=== PATIENT | female | born 1980 | race Caucasian/White ===

== ENCOUNTER 2017-11-12 11:00 | Outpatient (CLI) | payer MEDICAID ==
[2017-11-12 11:41] LABS: ADD UMIC YES; UR ASCORBIC ACID NEGATIVE (NEGATIVE); UR BACTERIA FEW /HPF (NONE SEEN); UR BILIRUBIN (Dip) NEGATIVE (NEGATIVE); UR BLOOD (Dip) NEGATIVE (NEGATIVE); UR CLARITY CLEAR (CLEAR); UR COLOR YELLOW (YELLOW); UR GLUCOSE (Dip) NEGATIVE (NEGATIVE); UR KETONES (Dip) TRACE mg/dL (NEGATIVE); UR LEUKOCYTE ESTERASE (Dip) 1+ Leu/ul (NEGATIVE); UR MUCUS FEW /HPF (NONE SEEN); UR NITRITE (Dip) NEGATIVE (NEGATIVE); UR RBC 1 /HPF (0-5); UR SPECIFIC GRAVITY (Dip) 1.024 (1.003-1.030); UR SQUAMOUS EPITHELIAL CELL FEW /HPF (FEW); UR TOTAL PROTEIN (Dip) NEGATIVE (NEGATIVE); UR UROBILINOGEN (Dip) 1+ mg/dL (NEGATIVE); UR WBC 3 /HPF (0-5)
== END 2017-11-12 12:00 | disposition home or self-care (01) ==
LOC: OBT 11:00 → L-D 11:01 → OBT 12:00
DX: O23.43 Unspecified infection of urinary tract in pregnancy, third trimester (principal); O09.523 Supervision of elderly multigravida, third trimester; Z3A.37 37 weeks gestation of pregnancy
CPT/HCPCS: 76818; 81001

== ENCOUNTER 2017-11-23 04:25 | Inpatient (IN) | payer MEDICAID ==
[2017-11-23] MEDS ORDERED: LACTATED RINGER'S 1,000 ML IV (04:56)
[2017-11-23] MEDS ORDERED: OXYTOCIN 30 UNITS/LR 500 ML IV ×2 (05:00→11:00)
[2017-11-23] MEDS ORDERED: METHYLERGONOVINE 0.2 MG INJ IM ×2 (05:00→11:00)
[2017-11-23] MEDS ORDERED: IBUPROFEN 600 MG TAB PO (05:00)
[2017-11-23] MEDS ORDERED: MISOPROSTOL 200 MCG TAB PR ×2 (05:00→11:00)
[2017-11-23] MEDS ORDERED: OXYCODONE/ASPIRIN (4.88/325) TAB PO (05:00)
[2017-11-23] MEDS ORDERED: CARBOPROST 250 MCG INJ IM ×2 (05:00→11:00)
[2017-11-23] MEDS ORDERED: BUTORPHANOL 2 MG INJ IV (05:00)
[2017-11-23] MEDS: LACTATED RINGER'S 1,000 ML IV (05:16)
[2017-11-23 06:25] LABS: ADD MAN DIFF? NO
[2017-11-23 06:43] LABS: WHITE BLOOD COUNT 6.5 10^3/ul (4.8-10.8)
[2017-11-23 06:43] LABS: BASOPHILS % 0.3 % (0.0-2.0); EOSINOPHILS % 0.3 % (0.0-7.0); HEMATOCRIT 34.4 % (37.0-47.0); HEMOGLOBIN 11.6 g/dl (12.0-16.0); LYMPHOCYTES # 1.6 10^3/ul (0.8-2.9); LYMPHOCYTES % 23.7 % (15.0-51.0); MEAN CORPUSCULAR HEMOGLOBIN 31.3 pg (29.0-33.0); MEAN CORPUSCULAR HGB CONC 33.7 g/dl (32.0-37.0); MEAN CORPUSCULAR VOLUME 92.7 fl (82.0-101.0); MONOCYTE # 0.5 10^3/ul (0.3-0.9); MONOCYTES % 7.5 % (0.0-11.0); NEUTROPHIL # 4.4 10^3/ul (1.6-7.5); NEUTROPHILS % 67.6 % (39.0-77.0); PLATELET COUNT 200 10^3/UL (140-415); RED BLOOD COUNT 3.71 10^6/ul (4.20-5.40); RED CELL DISTRIBUTION WIDTH 13.3 % (11.5-14.5)
[2017-11-23 06:55] LABS: INR 0.85; PARTIAL THROMBOPLASTIN TIME 25.2 Sec (25.0-35.0); PROTIME 11.7 Sec (11.9-14.9); PT RATIO 0.9
[2017-11-23 07:37] LABS: HEPATITIS B SURFACE ANTIGEN NEGATIVE (NEGATIVE)
[2017-11-23] MEDS ORDERED: morphine 10 MG INJ (08:38)
[2017-11-23] MEDS: morphine 10 MG INJ IV (08:43)
[2017-11-23] MEDS: OXYTOCIN 30 UNITS/LR 500 ML IV ×2 (08:44→08:58)
[2017-11-23] MEDS: LIDOCAINE 1% (MPF) 30 ML INJ INJ ×2 (08:47→08:48)
[2017-11-23] MEDS ORDERED: LACTATED RINGER'S 1,000 ML IV* (10:37)
[2017-11-23] MEDS ORDERED: DIBUCAINE 1% 30 GM OINT TOP (11:00)
[2017-11-23] MEDS ORDERED: HYDROCODONE/APAP (5/325) TAB PO (11:00)
[2017-11-23] MEDS ORDERED: ACETAMINOPHEN 325 MG TAB PO (11:00)
[2017-11-23] MEDS ORDERED: BENZOCAINE 20% 56 ML SPRAY TOP (11:00)
[2017-11-23] MEDS: IBUPROFEN 600 MG TAB PO ×3 (12:00→23:47)
[2017-11-23] MEDS ORDERED: ONDANSETRON 4 MG INJ IV (13:00)
[2017-11-23] MEDS: LANOLIN 7 GM TUBE TOP (15:20)
[2017-11-23] MEDS: WITCH HAZEL/GLYCERIN PAD PR (15:21)
[2017-11-23] MEDS: ONDANSETRON 4 MG TAB PO (15:32)
[2017-11-23 18:37] LABS: RAPID PLASMA REAGIN NONREACTIVE (NR)
[2017-11-23] MEDS: SENNA/DOCUSATE NA (8.6MG/50MG) TAB PO (23:47)
[2017-11-24] MEDS: IBUPROFEN 600 MG TAB PO ×3 (06:00→18:00)
[2017-11-24 08:57] LABS: ADD MAN DIFF? NO
[2017-11-24 09:07] LABS: WHITE BLOOD COUNT 9.5 10^3/ul (4.8-10.8)
[2017-11-24 09:07] LABS: BASOPHILS % 0.2 % (0.0-2.0); EOSINOPHILS % 0.3 % (0.0-7.0); HEMATOCRIT 33.3 % (37.0-47.0); HEMOGLOBIN 11.3 g/dl (12.0-16.0); LYMPHOCYTES # 1.6 10^3/ul (0.8-2.9); LYMPHOCYTES % 16.5 % (15.0-51.0); MEAN CORPUSCULAR HEMOGLOBIN 31.7 pg (29.0-33.0); MEAN CORPUSCULAR HGB CONC 33.9 g/dl (32.0-37.0); MEAN CORPUSCULAR VOLUME 93.3 fl (82.0-101.0); MEAN PLATELET VOLUME 12.1 fl (7.4-10.4); MONOCYTE # 0.6 10^3/ul (0.3-0.9); MONOCYTES % 5.8 % (0.0-11.0); NEUTROPHIL # 7.3 10^3/ul (1.6-7.5); NEUTROPHILS % 76.7 % (39.0-77.0); PLATELET COUNT 196 10^3/UL (140-415); RED BLOOD COUNT 3.57 10^6/ul (4.20-5.40); RED CELL DISTRIBUTION WIDTH 13.3 % (11.5-14.5)
[2017-11-24] MEDS: SENNA/DOCUSATE NA (8.6MG/50MG) TAB PO ×2 (09:16→21:00)
[2017-11-25] MEDS: IBUPROFEN 600 MG TAB PO ×3 (06:00→12:00)
[2017-11-25] MEDS: DIPHTH/TET/ACEL PERTUSS (ADULT) 0.5 ML VIAL IM* (09:01)
[2017-11-25] MEDS: SENNA/DOCUSATE NA (8.6MG/50MG) TAB PO (09:08)
== END 2017-11-25 15:27 | disposition home or self-care (01) | DRG 775 ==
LOC: OBT 04:25 → L-D 04:25 → OBT 04:48 → L-D 04:48 → PP1 11:42
PROVIDERS: Specialist
PROC: 10E0XZZ Delivery of Products of Conception, External Approach (ICD-10-PCS; principal; 2017-11-23)
PROC: 0KQM0ZZ Repair Perineum Muscle, Open Approach (ICD-10-PCS; 2017-11-23)
PROC: 3E033VJ Introduction of Other Hormone into Peripheral Vein, Percutaneous Approach (ICD-10-PCS; 2017-11-23)
DX: O70.1 Second degree perineal laceration during delivery (principal); Z37.0 Single live birth; O69.81X0 Labor and delivery complicated by cord around neck, without compression, not applicable or unspecified; Z3A.38 38 weeks gestation of pregnancy
CPT/HCPCS: 85025; 85610; 85730; 86592; 86850; 86900; 86901; 87340; 99464